=== PATIENT | female | born 1995 ===

== ENCOUNTER 2016-12-24 01:37 | Observation (INO) | payer SELFPAY ==
[2016-12-24 02:04] VITALS: O2SAT 99
[2016-12-24] MEDS ORDERED: Sodium Chloride 0.9% 1,000 ML IV STA (02:21)
--- NOTE | 2016-12-24 02:23 | ED PDOC ---
HPI: Abdomen Time Seen by Provider: 12/24/16 02:04 Chief Complaint (Nursing): Abdominal Pain Chief Complaint (Provider): abdominal pain History Per: Patient, Family History/Exam Limitations: no limitations Onset/Duration Of Symptoms: Days (2), Waxing/Waning Current Symptoms Are (Timing): Still Present Location Of Pain/Discomfort: Epigastric Quality Of Discomfort: Burning, "Pain" Associated Symptoms: Nausea Additional History Per: Patient Additional Complaint(s): 21 y/o female presents for eval of intermittent abdominal pain x 2 days. Patient notes pain to have started after eating pizza, described as burning. Associated nausea. Denies fever, vomiting, chest pain, shortness of breath, changes in bowel movements, dysuria, hematuria. Past Medical History Reviewed: Historical Data, Nursing Documentation, Vital Signs Vital Signs: Last Vital Signs Temp 98.4 F 12/24/16 02:02 Pulse 89 12/24/16 02:02 Resp 18 12/24/16 02:02 BP 130/86 12/24/16 02:02 Pulse Ox 99 12/24/16 04:04 - Medical History PMH: No Chronic Diseases - Surgical History Surgical History: No Surg Hx - Family History Family History: States: Unknown Family Hx - Allergies Allergies/Adverse Reactions: Allergies Allergy/AdvReac Type Severity Reaction Status Date / Time Penicillins Allergy RASH Verified 12/24/16 02:01 Review of Systems ROS Statement: Except As Marked, All Systems Reviewed And Found Negative Gastrointestinal: Positive for: Nausea, Abdominal Pain Physical Exam - Reviewed Nursing Documentation Reviewed: Yes Vital Signs Reviewed: Yes - Physical Exam Appears: Positive for: Well, Non-toxic, No Acute Distress Head Exam: Positive for: ATRAUMATIC, NORMAL INSPECTION, NORMOCEPHALIC Skin: Positive for: Normal Color Eye Exam: Positive for: Normal appearance ENT: Positive for: Normal ENT Inspection Cardiovascular/Chest: Positive for: Regular Rate, Rhythm Respiratory: Positive for: Normal Breath Sounds Gastrointestinal/Abdominal: Positive for: Bowel Sounds, Soft, Tenderness ( epigastric, periumbilical) Back: Positive for: Normal Inspection Extremity: Positive for: Normal ROM Neurologic/Psych: Positive for: Alert, Oriented - Laboratory Results Result Diagrams: 12/24/16 03:06 12/24/16 03:06 - ECG O2 Sat by Pulse Oximetry: 99 - Progress ED Course And Treament: labs, IV fluids, IV pepcid, IV zofran ED OBSERVATION Date of observation admission: 12/24/16 Time of observation admission: 04:03 - Observation admission statement Patient is being placed in observation because:: abdominal pain - Goals of Observation Goals of observation are:: obtain CT abd/pelvis - Progress Note Progress Note: 12/24/16 04:03 Patient notes little improvement of pain; will start PO contrast and order IV toradol Disposition - Clinical Impression Clinical Impression: Abdominal pain - Patient ED Disposition Is Patient to be Admitted: No - Disposition Referrals: Simeon Cerrato [Primary Care Provider] - Fareed Chowdhury MD, PhD [Staff Provider] - Disposition: Transfer of Care Disposition Time: 06:00 Condition: STABLE Patient Signed Over To: Tanner Carcamo Handoff Comments: pending CT abd/pelvis
[2016-12-24 03:09] LABS: BASO # 0.1 K/uL (0.0-0.2); BASO % 0.4 % (0.0-2.0); EOS # 2.5 K/uL (0.0-0.7); EOS % 15.6 % (0.0-4.0); HEMOGLOBIN 12.4 g/dL (12.0-16.0); LYMPH # 3.9 K/uL (1.0-4.3); LYMPH % 24.3 % (20.0-40.0); MEAN CELL VOLUME 81.6 fl (81.0-99.0); MEAN CORPUSCULAR HEMOGLOBIN 26.1 pg (27.0-31.0); MEAN PLATELET VOLUME 7.7 fl (7.2-11.7); MONO # 0.6 K/uL (0.0-0.8); MONO % 3.8 % (0.0-10.0); NEUT % 55.9 % (50.0-75.0); RBC 4.74 Mil/uL (3.80-5.20); RED CELL DISTRIBUTION WIDTH 13.8 % (11.5-14.5); WHITE BLOOD COUNT 16.2 K/uL (4.8-10.8)
[2016-12-24 03:14] LABS: ALBUMIN 4.5 g/dL (3.5-5.0)
[2016-12-24 03:17] LABS: ALB/GLOB RATIO 1.1 (1.0-2.1); AST/SGOT 27 U/L (14-36); GFR AFRICAN-AMERICAN > 60; GFR NON-AFRICAN AMERICAN > 60
[2016-12-24 03:18] LABS: ALT/SGPT 31 U/L (9-52); BLOOD UREA NITROGEN 9 mg/dl (7-17); CALCIUM 10.1 mg/dL (8.4-10.2); LIPASE 82 U/L (23-300)
[2016-12-24] MEDS ORDERED: Iohexol 240 (50 ml) PO ONE (04:01)
[2016-12-24] MEDS ORDERED: Iohexol 240 (50 ml) ONE (04:36)
[2016-12-24] MEDS ORDERED: Iohexol 300 100 ML IJ ONE (06:40)
[2016-12-24] MEDS ORDERED: Sodium Chloride 0.9% 50 ML IV ONE (06:40)
--- NOTE | 2016-12-24 06:50 | ED PDOC ---
- Laboratory Results Result Diagrams: 12/24/16 03:06 12/24/16 03:06 - ECG O2 Sat by Pulse Oximetry: 99 (RA) Pulse Ox Interpretation: Normal Medical Decision Making Medical Decision Making: Patient signed out to provider at 0600 from KIMO Dang pending CT report. Patient will be signed out from provider to Dr. Hammer at [address] report. Scribe Attestation Documented by Suzanne Prasad acting as a scribe for Tanner Carcamo MD. Provider Attestation All medical record entries made by the Scribe were at my direction and personally dictated by me. I have reviewed the chart and agree that the record accurately reflects my personal performance of the history, physical exam, medical decision making, and the department course for this patient. I have also personally directed, reviewed, and agree with the discharge instructions and disposition. Disposition - Clinical Impression Clinical Impression: Abdominal pain - POA Present On Arrival: None - Disposition Disposition: Transfer of Care Disposition Time: 07:00 Condition: STABLE Patient Signed Over To: Oksana Hammer Handoff Comments: Patient signed out to Dr. Hammer pending report of CT
--- NOTE | 2016-12-24 08:15 | ED PDOC ---
- Laboratory Results Result Diagrams: 12/24/16 03:06 12/24/16 03:06 - ECG O2 Sat by Pulse Oximetry: 99 (RA) Medical Decision Making Medical Decision Makin:00 Patient signed over to me by Tanner Carcamo MD, pending CT reports. 8:15 CT A/P with IV Contrast FINDINGS: Lower thorax: No acute findings. ABDOMEN: Liver: Unremarkable. No mass. Gallbladder and bile ducts: Unremarkable. No calcified stones. No ductal dilation. Pancreas: Unremarkable. No mass. No ductal dilation. Spleen: Unremarkable. No splenomegaly. Adrenals: Unremarkable. No mass. Kidneys and ureters: Unremarkable. No solid mass. No hydronephrosis. Stomach and bowel: Unremarkable. No obstruction. No mucosal thickening. Appendix: Normal appendix. PELVIS: Bladder: Unremarkable. No mass. Reproductive: Unremarkable as visualized. ABDOMEN and PELVIS: Intraperitoneal space: Unremarkable. No free air. No significant fluid collection. Bones/joints: No acute fracture. No dislocation. Soft tissues: Unremarkable. Vasculature: Unremarkable. No abdominal aortic aneurysm. Lymph nodes: Unremarkable. No enlarged lymph nodes. IMPRESSION: Normal abdomen and pelvis. Patient is stable and ready for discharge home. pt feels better [place]. Scribe Attestation: Documented by Opal Wilks, acting as a scribe for Oksana Hammer MD. Provider Scribe Attestation: All medical record entries made by the Scribe were at my direction and personally dictated by me. I have reviewed the chart and agree that the record accurately reflects my personal performance of the history, physical exam, medical decision making, and the department course for this patient. I have also personally directed, reviewed, and agree with the discharge instructions and disposition. Disposition Counseled Patient/Family Regarding: Studies Performed, Diagnosis, Need For Followup - Clinical Impression Clinical Impression: Abdominal pain - POA Present On Arrival: None - Disposition Disposition: Routine/Home Disposition Time: :15 Condition: IMPROVED
[2016-12-24 08:37] VITALS: BP 122/65; PULSE 75; RESP 16; TEMP 98
--- NOTE | 2016-12-24 08:41 | CT ---
PROCEDURE: CT Abdomen and Pelvis with contrast HISTORY: abd pain COMPARISON: None. TECHNIQUE: Contrast dose: 90 cc Omnipaque 300 Radiation dose: Total exam DLP = 311.78 mGy-cm. This CT exam was performed using one or more of the following dose reduction techniques: Automated exposure control, adjustment of the mA and/or kV according to patient size, and/or use of iterative reconstruction technique. FINDINGS: LOWER THORAX: Unremarkable. LIVER: Unremarkable. No gross lesion or ductal dilatation. GALLBLADDER AND BILE DUCTS: Unremarkable. PANCREAS: Unremarkable. No gross lesion or ductal dilatation. SPLEEN: Unremarkable. ADRENALS: Unremarkable. No mass. KIDNEYS AND URETERS: Unremarkable. No hydronephrosis. No solid mass. VASCULATURE: Unremarkable. No aortic aneurysm. BOWEL: Unremarkable. No obstruction. No gross mural thickening. APPENDIX: Normal appendix. PERITONEUM: Unremarkable. No free fluid. No free air. LYMPH NODES: Unremarkable. No enlarged lymph nodes. BLADDER: Unremarkable. REPRODUCTIVE: Unremarkable. BONES: No acute fracture. OTHER FINDINGS: None. IMPRESSION: No significant or acute findings to account for/ related to the clinical presentation. Concordant results (preliminary interpretation) provided by [facility]. Procedure Completed: 18:47 Preliminary ([facility]) Report: Dictated and Authenticated: 20:18 Final Interpretation: 08:39. December 24, 2016.
== END 2016-12-24 08:35 | disposition home or self-care (01) ==
LOC: H.ER 01:37 → H.EROBSV 04:02
PROVIDERS: ADMIT Emergency Medicine; ATTEND Emergency Medicine
DX: R10.9 Unspecified abdominal pain (principal)
CPT/HCPCS: 74177; 80053; 81025; 83690; 85025; 96361; 96374; 96375; 99283; G0378; J1885; J2405; J7040; Q9966; Q9967

== ENCOUNTER 2017-01-19 20:32 | Emergency (ER) | payer SELFPAY ==
[2017-01-19 20:46] VITALS: BP 135/68; PULSE 88; RESP 18; TEMP 98.4; O2SAT 100
[2017-01-19] MEDS ORDERED: Sodium Chloride 0.9% 1,000 ML IV STA (21:09)
--- NOTE | 2017-01-19 21:14 | ED PDOC ---
HPI: Abdomen Time Seen by Provider: 01/19/17 20:46 Chief Complaint (Nursing): Abdominal Pain Chief Complaint (Provider): abdominal pain History Per: Patient History/Exam Limitations: no limitations Onset/Duration Of Symptoms: Days (3), Waxing/Waning Current Symptoms Are (Timing): Still Present Location Of Pain/Discomfort: Epigastric Quality Of Discomfort: Burning, "Pain" Associated Symptoms: Nausea, Vomiting, Diarrhea Additional History Per: Patient Additional Complaint(s): 21 y/o female presents with intermittent abdominal pain x 3 days. Associated diarrhea, and one episode of nonbilious vomiting. Patient notes pain worse after eating. Patient seen in ED for same pain a few weeks ago, followed up with her PMD and was told she had gallstones, has appt to see surgeon in 2 weeks. Denies fever, chest pain, shortness of breath, palpitations, dysuria, hematuria. Past Medical History Reviewed: Historical Data, Nursing Documentation, Vital Signs Vital Signs: Last Vital Signs Temp 98.4 F 01/19/17 20:41 Pulse 88 01/19/17 20:41 Resp 18 01/19/17 20:41 BP 135/68 01/19/17 20:41 Pulse Ox 100 01/19/17 23:22 - Medical History PMH: No Chronic Diseases - Surgical History Surgical History: No Surg Hx - Family History Family History: States: Unknown Family Hx - Home Medications Home Medications: Ambulatory Orders Medication Instructions Recorded Famotidine [Pepcid] 20 mg PO BID #20 tab 01/19/17 - Allergies Allergies/Adverse Reactions: Allergies Allergy/AdvReac Type Severity Reaction Status Date / Time Penicillins Allergy RASH Verified 12/24/16 02:01 Review of Systems ROS Statement: Except As Marked, All Systems Reviewed And Found Negative Gastrointestinal: Positive for: Nausea, Abdominal Pain, Diarrhea Physical Exam - Reviewed Nursing Documentation Reviewed: Yes Vital Signs Reviewed: Yes - Physical Exam Appears: Positive for: Well, Non-toxic, No Acute Distress Head Exam: Positive for: ATRAUMATIC, NORMAL INSPECTION, NORMOCEPHALIC Skin: Positive for: Normal Color Eye Exam: Positive for: Normal appearance ENT: Positive for: Normal ENT Inspection Cardiovascular/Chest: Positive for: Regular Rate, Rhythm Respiratory: Positive for: Normal Breath Sounds Gastrointestinal/Abdominal: Positive for: Bowel Sounds, Soft, Tenderness ( epigastric) Back: Positive for: Normal Inspection Extremity: Positive for: Normal ROM Neurologic/Psych: Positive for: Alert, Oriented - Laboratory Results Result Diagrams: 01/19/17 21:16 01/19/17 21:16 - ECG O2 Sat by Pulse Oximetry: 100 - Progress ED Course And Treament: Chart reviewed, patient had normal CT 12/24/16; labs, urine, u/s, IV fluids, IV pepcid, IV toradol ordered EXAM: US Abdomen Limited, Right Upper Quadrant CLINICAL HISTORY: 21 years old, female; Pain; Abdominal pain; Epigastric; Additional info: Abd pain TECHNIQUE: Real-time ultrasound of the right upper quadrant with image documentation. COMPARISON: No relevant prior studies available. FINDINGS: Liver: Normal echogenicity. No mass. No intrahepatic bile duct dilatation. Gallbladder: No gallstones. No wall thickening. No pericholecystic fluid. No sonographic Crain's sign. Common bile duct: No dilatation. No stones. Pancreas: Unremarkable as visualized. Right kidney: Normal echogenicity. No hydronephrosis. IMPRESSION: 1. No acute findings. On re-eval, patient states pain improved. Patient educated on findings, discharged with rx Pepcid. Advised follow up PMD/GI. Return to Ed for worsening/concerning symptoms. Disposition - Clinical Impression Clinical Impression: Abdominal pain - Patient ED Disposition Is Patient to be Admitted: No Counseled Patient/Family Regarding: Studies Performed, Diagnosis, Need For Followup, Rx Given - Disposition Referrals: Sergey MOORE,MD Oriana [Medical Doctor] - Disposition: Routine/Home Disposition Time: 23:19 Condition: IMPROVED Prescriptions: Famotidine [Pepcid] 20 mg PO BID #20 tab Instructions: Gastritis (ED), Gastroenteritis (ED) Forms: [employer] (Japanese) Print Language: ROMANIAN
[2017-01-19 21:24] LABS: BASO # 0.1 K/uL (0.0-0.2); BASO % 1.2 % (0.0-2.0); EOS # 0.8 K/uL (0.0-0.7); EOS % 7.2 % (0.0-4.0); HEMOGLOBIN 12.3 g/dL (12.0-16.0); LYMPH # 3.8 K/uL (1.0-4.3); MEAN CELL VOLUME 81.1 fl (81.0-99.0); MEAN CORPUSCULAR HEMOGLOBIN 26.8 pg (27.0-31.0); MEAN PLATELET VOLUME 7.4 fl (7.2-11.7); MONO # 0.6 K/uL (0.0-0.8); MONO % 6.2 % (0.0-10.0); NEUT % 48.4 % (50.0-75.0); RBC 4.59 Mil/uL (3.80-5.20); RED CELL DISTRIBUTION WIDTH 13.1 % (11.5-14.5); WHITE BLOOD COUNT 10.4 K/uL (4.8-10.8)
[2017-01-19 21:31] LABS: ALB/GLOB RATIO 1.3 (1.0-2.1); ALBUMIN 4.4 g/dL (3.5-5.0); ALT/SGPT 37 U/L (9-52); AST/SGOT 24 U/L (14-36); BLOOD UREA NITROGEN 11 mg/dl (7-17); CALCIUM 9.7 mg/dL (8.4-10.2); GFR AFRICAN-AMERICAN > 60; GFR NON-AFRICAN AMERICAN > 60; LIPASE 102 U/L (23-300)
[2017-01-19 22:17] LABS: SQUAMOUS EPITHIAL < 1 /hpf (0-5); URINE BILIRUBIN NEGATIVE (NEGATIVE); URINE BLOOD NEGATIVE (NEGATIVE); URINE CLARITY SLIGHTY-CLOUDY (Clear); URINE COLOR YELLOW (YELLOW); URINE GLUCOSE (UA) NEG (Normal); URINE LEUKOCYTE ESTERASE NEG Leu/uL (Negative); URINE NITRATE NEGATIVE (NEGATIVE); URINE PROTEIN NEGATIVE (NEGATIVE); URINE UROBILINOGEN 0.2-1.0 mg/dL (0.2-1.0)
--- NOTE | 2017-01-19 22:47 | US ---
EXAM: US Abdomen Limited, Right Upper Quadrant CLINICAL HISTORY: 21 years old, female; Pain; Abdominal pain; Epigastric; Additional info: Abd pain TECHNIQUE: Real-time ultrasound of the right upper quadrant with image documentation. COMPARISON: No relevant prior studies available. FINDINGS: Liver: Normal echogenicity. No mass. No intrahepatic bile duct dilatation. Gallbladder: No gallstones. No wall thickening. No pericholecystic fluid. No sonographic Crain's sign. Common bile duct: No dilatation. No stones. Pancreas: Unremarkable as visualized. Right kidney: Normal echogenicity. No hydronephrosis. IMPRESSION: 1.No acute findings.
== END 2017-01-19 23:29 | disposition home or self-care (01) ==
LOC: H.ER 20:32
DX: R10.13 Epigastric pain (principal)
CPT/HCPCS: 76705; 80053; 81003; 81025; 83690; 85025; 96361; 96374; 96375; 99283; J1885; J7040

== ENCOUNTER 2017-02-05 22:35 | Emergency (ER) | payer SELFPAY ==
[2017-02-05 23:04] VITALS: BP 133/86; PULSE 73; RESP 16; TEMP 97.4; O2SAT 100
--- NOTE | 2017-02-05 23:11 | ED PDOC ---
HPI: Abdomen Time Seen by Provider: 02/05/17 23:09 Chief Complaint (Nursing): Abdominal Pain Chief Complaint (Provider): abdominal pain History Per: Patient Additional Complaint(s): 21-year-old female with history of gastritis presents to emergency department with epigastric pain for 3 days. Patient was seen on January 19 in ED and had CT abd and pelvis and abdominal ultrasound which demonstrated no acute findings. Patient was started on Pepcid for gastritis and states that initially her symptoms did improve. 4 days ago patient stopped taking the Pepcid and started to deviate from the dietary instructions she was given for gastritis. This is when the pain started again. Patient resumed the pepcid again today but she still has pain so she came to ED. She rates pain as 5/10, localized to epigastric region. Patient denies nausea or vomiting, no fever or chills. Past Medical History Reviewed: Historical Data, Nursing Documentation, Vital Signs Vital Signs: Last Vital Signs Temp 97.4 F L 02/05/17 23:01 Pulse 73 02/05/17 23:01 Resp 16 02/05/17 23:01 BP 133/86 02/05/17 23:01 Pulse Ox 100 02/05/17 23:44 - Medical History PMH: Gastritis - Surgical History Surgical History: No Surg Hx - Family History Family History: States: No Known Family Hx - Living Arrangements Living Arrangements: With Family - Social History Current smoker - smoking cessation education provided: No Alcohol: None Drugs: Denies - Home Medications Home Medications: Ambulatory Orders Medication Instructions Recorded Famotidine [Pepcid] 20 mg PO BID #20 tab 01/19/17 - Allergies Allergies/Adverse Reactions: Allergies Allergy/AdvReac Type Severity Reaction Status Date / Time Penicillins Allergy RASH Verified 02/05/17 23:01 Review of Systems ROS Statement: Except As Marked, All Systems Reviewed And Found Negative Constitutional: Negative for: Fever, Chills Gastrointestinal: Positive for: Abdominal Pain (epigastric ). Negative for: Nausea, Vomiting, Diarrhea, Constipation Genitourinary Female: Negative for: Dysuria Physical Exam - Reviewed Nursing Documentation Reviewed: Yes Vital Signs Reviewed: Yes - Physical Exam Appears: Positive for: Well, Non-toxic, No Acute Distress Skin: Negative for: Rash Eye Exam: Positive for: Normal appearance, EOMI, PERRL Cardiovascular/Chest: Positive for: Regular Rate, Rhythm Respiratory: Positive for: Normal Breath Sounds Gastrointestinal/Abdominal: Positive for: Soft. Negative for: Tenderness, Distended, Guarding, Rebound Back: Negative for: L CVA Tenderness, R CVA Tenderness Extremity: Positive for: Normal ROM Neurologic/Psych: Positive for: Alert, Oriented - Laboratory Results Urine POC: Negative Urine dip results: Positive for: Blood (large). Negative for: Leukocyte Esterase, Nitrate, Ketones, Glucose, Bilirubin, Protein - ECG O2 Sat by Pulse Oximetry: 100 Pulse Ox Interpretation: Normal Medical Decision Making Medical Decision Making: Impression: Gastritis, acid reflux Previous records reviewed, CT abd and pelvis and Abd US from 01/19/17 are both negative. Abdominal exam today is benign Plan: Urine dip PO maalox Patient feels better after meds given. She has rx pepcid at home and was instructed to take meds as directed. Dietary instructions provided. Advised follow up [facility] with GI. Disposition - Clinical Impression Clinical Impression: Gastritis - Patient ED Disposition Is Patient to be Admitted: No Counseled Patient/Family Regarding: Studies Performed, Diagnosis, Need For Followup - Disposition Referrals: Simeon Cerrato [Staff Provider] - Sergey MOORE,MD Oriana [Medical Doctor] - Disposition: Routine/Home Disposition Time: 00:50 Condition: STABLE Additional Instructions: Continue with pepcid twice daily as prescribed. Follow dietary instructions. Follow up as soon as possible with dot net developer. Instructions: Gastritis (ED), Diet for Ulcers and Gastritis (ED) Forms: [employer] (Tongan) Print Language: LITHUANIAN
[2017-02-05] MEDS ORDERED: Alum-Mag Hydrox-Simethicone Susp (30 mL) PO STA (23:38)
== END 2017-02-06 01:02 | disposition home or self-care (01) ==
LOC: H.ER 22:35
DX: K29.70 Gastritis, unspecified, without bleeding (principal); K21.9 Gastro-esophageal reflux disease without esophagitis; Z88.0 Allergy status to penicillin

== ENCOUNTER 2017-06-16 15:40 | Emergency (ER) | payer OTHER ==
[2017-06-16 15:50] VITALS: TEMP 98.9; O2SAT 100
[2017-06-16] MEDS ORDERED: Sodium Chloride 0.9% 1,000 ML IV STA (16:22)
[2017-06-16 16:56] LABS: SQUAMOUS EPITHIAL 1 /hpf (0-5); URINE BILIRUBIN NEGATIVE (NEGATIVE); URINE BLOOD SMALL (NEGATIVE); URINE CLARITY CLEAR (Clear); URINE COLOR STRAW (YELLOW); URINE GLUCOSE (UA) NEG (Normal); URINE LEUKOCYTE ESTERASE NEG Leu/uL (Negative); URINE NITRATE NEGATIVE (NEGATIVE); URINE PROTEIN NEGATIVE (NEGATIVE); URINE UROBILINOGEN 0.2-1.0 mg/dL (0.2-1.0)
[2017-06-16 17:35] LABS: ALBUMIN 4.5 g/dL (3.5-5.0); ALT/SGPT 36 U/L (9-52); AST/SGOT 28 U/L (14-36); BLOOD UREA NITROGEN 9 mg/dl (7-17); CALCIUM 9.8 mg/dL (8.4-10.2); GFR AFRICAN-AMERICAN > 60; GFR NON-AFRICAN AMERICAN > 60
--- NOTE | 2017-06-16 17:35 | CT ---
PROCEDURE: CT HEAD WITHOUT CONTRAST. HISTORY: L sided headache and facial paresthesia COMPARISON: None available. TECHNIQUE: Axial computed tomography images were obtained through the head/brain without intravenous contrast. Radiation dose: Total exam DLP = 727.44 mGy-cm. This CT exam was performed using one or more of the following dose reduction techniques: Automated exposure control, adjustment of the mA and/or kV according to patient size, and/or use of iterative reconstruction technique. FINDINGS: HEMORRHAGE: No intracranial hemorrhage. BRAIN: No mass effect or edema. No atrophy or chronic microvascular ischemic changes. VENTRICLES: No hydrocephalus. CALVARIUM: Unremarkable. PARANASAL SINUSES: Unremarkable as visualized. No significant inflammatory changes. MASTOID AIR CELLS: Unremarkable as visualized. No inflammatory changes. OTHER FINDINGS: None. IMPRESSION: No acute intracranial pathology identified.
[2017-06-16 17:36] LABS: BASO # 0.1 K/uL (0.0-0.2); EOS # 0.1 K/uL (0.0-0.7); EOS % 1.1 % (0.0-4.0); HEMOGLOBIN 12.5 g/dL (12.0-16.0); LYMPH # 2.9 K/uL (1.0-4.3); LYMPH % 27.4 % (20.0-40.0); MEAN CELL VOLUME 80.3 fl (81.0-99.0); MEAN CORPUSCULAR HGB CONC 32.5 g/dL (33.0-37.0); MEAN PLATELET VOLUME 8.1 fl (7.2-11.7); MONO # 0.5 K/uL (0.0-0.8); MONO % 5.1 % (0.0-10.0); NEUT # 6.8 K/uL (1.8-7.0); NEUT % 65.4 % (50.0-75.0); RBC 4.8 Mil/uL (3.80-5.20); RED CELL DISTRIBUTION WIDTH 13.8 % (11.5-14.5); WHITE BLOOD COUNT 10.4 K/uL (4.8-10.8)
--- NOTE | 2017-06-16 17:36 | RAD ---
HISTORY: SOB COMPARISON: No prior. TECHNIQUE: Chest PA and lateral FINDINGS: LUNGS: No focal consolidation. Scattered tiny probable right calcified granulomas. Please note that chest x-ray has limited sensitivity for the detection of pulmonary masses. PLEURA: No significant pleural effusion identified. No definite pneumothorax . CARDIOVASCULAR: The cardiomediastinal silhouette appears within normal limits of size. OSSEOUS STRUCTURES: No acute osseous abnormality identified. VISUALIZED UPPER ABDOMEN: Unremarkable. OTHER FINDINGS: None. IMPRESSION: No acute findings identified. See above.
[2017-06-16 17:41] LABS: ALB/GLOB RATIO 1.2 (1.0-2.1)
[2017-06-16 17:46] LABS: B-TYPE NATRIURETIC PEPTIDE 30.1 pg/ml (0-450)
--- NOTE | 2017-06-16 20:50 | ED PDOC ---
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 Seen at [facility] ED yesterday and Rx motrin and discharged. Denies fever, does note ongoing fatigue and generalized weakness, mild dyspnea. Denies abd pain, nausea, syncope, leg pain/swelling or sick contacts. Denies change in speech, vision, or symptoms of weakness or numbness to extremities. Past Medical History Reviewed: Historical Data, Nursing Documentation, Vital Signs Vital Signs: Last Vital Signs Temp 98.9 F 06/16/17 15:43 Pulse 96 H 06/16/17 20:52 Resp 20 06/16/17 16:39 BP 140/80 06/16/17 15:43 Pulse Ox 100 06/16/17 20:52 - Medical History PMH: No Chronic Diseases, Gastritis - Surgical History Surgical History: No Surg Hx - Family History Family History: States: Unknown Family Hx - Immunization History Hx Tetanus Toxoid Vaccination: No Hx Influenza Vaccination: No Hx Pneumococcal Vaccination: No - Home Medications Home Medications: Ambulatory Orders Medication Instructions Recorded Ibuprofen [Motrin] 600 mg PO Q6 PRN #20 tab 06/15/17 - Allergies Allergies/Adverse Reactions: Allergies Allergy/AdvReac Type Severity Reaction Status Date / Time Penicillins Allergy RASH Verified 02/08/17 22:58 Review of Systems ROS Statement: Except As Marked, All Systems Reviewed And Found Negative Constitutional: Negative for: Fever, Chills Cardiovascular: Positive for: Chest Pain. Negative for: Palpitations Respiratory: Positive for: Shortness of Breath. Negative for: Cough Gastrointestinal: Negative for: Abdominal Pain Genitourinary Female: Negative for: Dysuria, Frequency, Incontinence Musculoskeletal: Negative for: Neck Pain, Shoulder Pain, Back Pain, Leg Pain Skin: Negative for: Rash, Lesions, Jaundice Neurological: Negative for: Weakness, Numbness Psych: Positive for: Anxiety Physical Exam - Reviewed Nursing Documentation Reviewed: Yes Vital Signs Reviewed: Yes - Physical Exam Appears: Positive for: Well, Non-toxic, No Acute Distress Head Exam: Positive for: ATRAUMATIC, NORMAL INSPECTION, NORMOCEPHALIC Skin: Positive for: Normal Color, Warm, DRY Eye Exam: Positive for: EOMI, Normal appearance, PERRL ENT: Positive for: Normal ENT Inspection Neck: Positive for: Normal, Painless ROM Cardiovascular/Chest: Positive for: Regular Rate, Rhythm Respiratory: Positive for: CNT, Normal Breath Sounds Gastrointestinal/Abdominal: Positive for: Normal Exam, Bowel Sounds, Soft Back: Positive for: Normal Inspection Extremity: Positive for: Normal ROM Neurologic/Psych: Positive for: Alert, Oriented - Laboratory Results Result Diagrams: 06/16/17 17:18 06/16/17 17:18 - ECG ECG: Positive for: Interpreted By Me ECG Rhythm: Positive for: Sinus Rhythm, Nonspecific Changes Rate: 96 O2 Sat by Pulse Oximetry: 100 Pulse Ox Interpretation: Normal Medical Decision Making Medical Decision Making: given recurrent ED visits without improvement of symptoms, further workup initiated w CT brain, labs, EKG, UDip. labs reviewed and no clinically significant abnormalities BNP/Trop/DDimer negative/ WNL CT brain report reviewed per radiologist no abnormality Monitored in ED for 8+ hrs without progression and had improvement of symptoms. No risk factors for premature vascular disease, no signs of motor or other neurologic dysfunction, EKG sinus rhythm, symptoms now ongoing >3days, followup neuro outpatient for further testing. Disposition - Clinical Impression Clinical Impression: Facial paresthesia, Dyspnea - Patient ED Disposition Is Patient to be Admitted: No Counseled Patient/Family Regarding: Studies Performed, Diagnosis, Need For Followup, Rx Given - Disposition Referrals: [facility] [Outside] Salvador Garcia MD [Staff Provider] - Disposition: Routine/Home Disposition Time: 11:45 Condition: STABLE Additional Instructions: Return to ER for any worse or new symptoms/ See clinic and/or neurologist for further testing. Instructions: Paresthesia (ED), Dyspnea (ED) Forms: [employer] (Indian)
[2017-06-17 00:39] VITALS: BP 137/82; PULSE 90; RESP 18
--- NOTE | 2017-06-17 12:21 | CARD ---
APPROVED REPORT EKG Measurement Heart [id number] HI [id number] <Conclusion> Normal sinus rhythm Left ventricular hypertrophy with repolarization abnormality Abnormal ECG
== END 2017-06-17 00:41 | disposition home or self-care (01) ==
LOC: H.ER 15:40
DX: R06.00 Dyspnea, unspecified (principal); R20.2 Paresthesia of skin; Z88.0 Allergy status to penicillin
CPT/HCPCS: 70450; 71046; 80053; 81003; 81025; 83880; 84484; 85025; 85378; 86664; 86665; 93005; 96361; 96374; 99285; J1885; J7040

== ENCOUNTER 2017-06-18 13:12 | Emergency (ER) | payer SELFPAY ==
[2017-06-18 13:18] VITALS: BP 122/79; PULSE 91; RESP 16; TEMP 97.3; O2SAT 99
--- NOTE | 2017-06-18 13:23 | ED PDOC ---
Arrival/HPI - General Chief Complaint: Anxiety Historian: Patient, Family - History of Present Illness Narrative History of Present Illness (Text): 06/18/17 14:13 21 yo female w/ no significant PMH, presents to the ER c/o intermittent episodes of left facial paresthesias for the past several days associated with feeling anxious, and shaky. Patient admits being recently seen in this ED 2 days ago for similar complaints and had a full work up done which yielded normal results. Her symptoms continue to occur prompting ER visit. Otherwise the patient denies fever, fatigue, generalized weakness, dyspnea, chest pain, abd pain, nausea, syncope, leg pain/swelling or sick contacts. Denies change in speech, vision, or symptoms of weakness or numbness to extremities. Past Medical History - Provider Review Nursing Documentation Reviewed: Yes - Gastrointestinal Hx Gastritis: Yes - Psychiatric Hx Substance Use: No - Anesthesia Hx Anesthesia: No Family/Social History - Physician Review Nursing Documentation Reviewed: Yes Family/Social History: No Known Family HX Smoking Status: Never Smoked Hx Alcohol Use: No Hx Substance Use: No Allergies/Home Meds Allergies/Adverse Reactions: Allergies Penicillins Allergy (Verified 06/18/17 13:15) RASH Review of Systems - Review of Systems Constitutional: absent: Fatigue, Weight Change, Fevers ENT: absent: Sore Throat, Rhinorrhea, Epistaxis Respiratory: absent: SOB, Cough, Sputum Cardiovascular: absent: Chest Pain, Palpitations, Edema Gastrointestinal: absent: Abdominal Pain, Constipation, Vomiting, Appetite Changes Genitourinary Female: absent: Dysuria, Frequency, Hematuria Musculoskeletal: absent: Arthralgias, Back Pain, Neck Pain Skin: absent: Rash, Pruritis, Skin Lesions Neurological: Other (numbness). absent: Headache, Dizziness, Focal Weakness Psychiatric: Anxiety. absent: Depression, Suicidal Ideation Physical Exam - Physical Exam Narrative Physical Exam (Text): 06/18/17 13:29 GENERAL APPEARANCE: Patient is awake, alert, oriented x 3, in no acute distress. SKIN: Warm, dry; (-) cyanosis; (-) rash. HEAD: (-) scalp swelling or tenderness, (-) temporal artery tenderness. EYES: (-) conjunctival pallor, (-) scleral icterus. ENMT: (-) sinus tenderness; mucous membranes moist. NECK: (-) tenderness, (-) stiffness, (-) meningismus, (-) lymphadenopathy. CHEST AND RESPIRATORY: (-) rales, (-) rhonchi, (-) wheezes; breath sounds equal bilaterally. HEART AND CARDIOVASCULAR: (-) irregularity; (-) murmur, (-) gallop. ABDOMEN AND GI: Soft; (-) tenderness. EXTREMITIES: (-) deformity. NEURO AND PSYCH: Mental status as above. 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 Strength and DTRs symmetric. Babinski normal bilaterally. Vital Signs Temp Pulse Resp BP Pulse Ox 06/18/17 13:15 97.3 F L 91 H 16 122/79 99 Medical Decision Making ED Course and Treatment: 06/18/17 14:16 21 yo female w/ no significant PMH, presents to the ER c/o intermittent episodes of left facial paresthesias for the past last several days associated with feeling anxious, and shaky. Previous medical records reviewed, patient was seen and evaluated in this emergency room on 06/16/2017 for similar complaints, during that visit she had a normal EKG, CT head which showed no acute findings and labs were wnl. Patient medicated with Xanax 0.25 mg by mouth. On reevaluation, patient reports improvement of her symptoms. On reevaluation, she is laying comfortably in bed in no acute distress. Has no additional complaints at this time. Repeat neurologic exam shows no acute focal findings. Diagnoses of anxiety and panic attack discussed with patient and family. Advised to follow up with the clinic in 1-2 days without fail. Advised to take medication as prescribed. Return to the emergency room at any time for any new or worsening symptoms. Patient states she fully agrees with and understands discharge instructions. States that she agrees with the plan and disposition. Verbalized and repeated discharge instructions and plan. I have given the patient opportunity to ask any additional questions. - Medication Orders Current Medication Orders: Discontinued Medications Alprazolam (Xanax) 0.25 mg PO ONCE ONE Stop: 06/18/17 13:22 Last Admin: 06/18/17 13:31 Dose: 0.25 mg - PA / WRAPPER [employer] HAND / Resident Statement /DO has reviewed & agrees with the documentation as recorded. Disposition/Present on Arrival - Present on Arrival Any Indicators Present on Arrival: No History of DVT/PE: No History of Uncontrolled Diabetes: No Urinary Catheter: No History of Decub. Ulcer: No - Disposition Have Diagnosis and Disposition been Completed?: Yes Diagnosis: Anxiety Disposition: HOME/ ROUTINE Disposition Time: 13:22 Patient Plan: Discharge Condition: STABLE Discharge Instructions (ExitCare): Anxiety (ED) Print Language: FAROESE Prescriptions: ALPRAZolam [Xanax] 0.25 mg PO TID PRN #9 tab PRN Reason: Anxiety Referrals: [facility] [place] [Outside] Forms: [facility] ([place]), [facility] ED School/Work Excuse
== END 2017-06-18 14:28 | disposition home or self-care (01) ==
LOC: H.ER 13:12
DX: F41.9 Anxiety disorder, unspecified (principal); Z88.0 Allergy status to penicillin